=== PATIENT | female | born 1980 | race African-American/Black ===

== ENCOUNTER 2018-01-11 05:21 | Day surgery (SDC) | payer OTHER ==
[~2018-01-11] VITALS: Ht 160 cm; Wt 93.0 kg
[~2018-01-11 05:21] MED LIST: ADDERALL XR 3030 MG PO; ALBUTEROL2.5 MG/3 M IH; ALLERGY RELIEF10 M1 PO; AMOXICILLIN500 MG PO; AMPHETAMINE SAL30 MG PO; ASCORBIC ACID500 M3 PO; ATARAX,VISTARIL25 MG PO; AVELOX400 MG PO; BUSPAR15 MG PO; BUSPAR30 MG PO; CALCIUM500 M4 PO; CITRATE OF MAG296 ML PO; CLEOCIN300 MG PO; COLACE50 MG PO; DELTASONE10 MG PO; DULERA 200 MCG/13 GM IH; ELIQUIS5 MG PO; FLONASE ALLERG9.9 ML BOTH NARES; FOLIC ACID1 MG PO; HYDROCHLOROTH12.5 M3 PO; HYDROCODONE-HO473 ML PO; IMITREX100 MG PO; LEVOCETIRIZINE D5 MG PO; LEVOFLOXACIN750 MG PO; MIRALAX17 GM PO; MIRENA1 EACH IY; MOBIC7.5 MG PO; MUCUS RELIEF600 M1 PO; NAPROSYN500 MG PO; OMEPRAZOLE40 M1 PO; OXYCODONE HCL10 MG PO; PORTIA 28 DA1 TABLET PO; PROVENTIL,2.5 MG/3 M IH; Proventil,Ventolin H IH; RANITIDINE HCL150 M1 PO; RITALIN LA30 MG PO; SINGULAIR10 MG PO; SPIRIVA1 INHALATI IH; SPIRIVA18 MCG IH; STERAPRED 5 MG U5 MG PO; Symbicort 160-4.5 mc IH; TOPAMAX100 MG PO; TOPAMAX50 MG PO; VENTOLIN HFA18 GM IH; VITAMIN B-121000 MC3 PO; XARELTO15 MG PO; ZANAFLEX4 M1 PO
[2018-01-11 06:04] VITALS: BP 131/85
[2018-01-11 13:55] VITALS: BP 120/76
[2018-01-11 19:19] VITALS: BP 124/75
[2018-01-12 03:18] VITALS: BP 108/66
[2018-01-12 06:15] LABS: HEMATOCRIT 36.6 % (36.0-46.0); HEMOGLOBIN 11.8 G/DL (11.9-15.5); MCH 29.8 PG (29.0-34.0); MCHC 32.2 G/DL (30.0-36.0); MCV 92.4 FL (83-99); PLATELET COUNT 183 K/uL (156-360); RBC DIS.WIDTH-CV 13.9 % (11.8-14.6); RBC DIS.WIDTH-SD 47.4 % (39-53); RED BLOOD COUNT 3.96 M/uL (3.80-5.20); WHITE BLOOD COUNT 14.5 K/uL (4.1-10.2)
[2018-01-12 06:41] LABS: CHLORIDE 111 MEQ/L (99-109); CREATININE 0.9 MG/DL (0.6-1.3); GFR ESTIMATE (CALCULATED) > 59 mL/min/; GLUCOSE 163 mg/dL (70-99); POTASSIUM 4.3 MEQ/L (3.7-5.4); SODIUM 139 MEQ/L (136-147); UREA NITROGEN (BUN) 9 mg/dL (9-23)
[2018-01-12 07:53] VITALS: BP 111/55
[2018-01-12] MEDS ORDERED: LOVENOX40 MG/0.4 SC (08:16)
[2018-01-12] MEDS ORDERED: OXYCODONE HCL5 MG PO (08:18)
[2018-01-12] MEDS ORDERED: IBUPROFEN400 MG PO (08:18)
== END 2018-01-12 09:06 | disposition home or self-care (01) ==
LOC: SDC 05:21 → 2EAST 11:30 → 2SOUTH 11:30 → ENRESERV 12:00 → 2EAST 13:45 → SDC 17:09 → 2EAST 01-12 09:06
PROVIDERS: Obstetrics & Gynecology
DX: N92.0 Excessive and frequent menstruation with regular cycle (principal); D25.9 Leiomyoma of uterus, unspecified; N94.6 Dysmenorrhea, unspecified; N83.8 Other noninflammatory disorders of ovary, fallopian tube and broad ligament; Z86.718 Personal history of other venous thrombosis and embolism; K21.9 Gastro-esophageal reflux disease without esophagitis; L30.9 Dermatitis, unspecified; K76.0 Fatty (change of) liver, not elsewhere classified; H91.90 Unspecified hearing loss, unspecified ear; E72.11 Homocystinuria; E66.3 Overweight; Z68.35 Body mass index [BMI] 35.0-35.9, adult; F43.10 Post-traumatic stress disorder, unspecified; J45.909 Unspecified asthma, uncomplicated; F98.8 Other specified behavioral and emotional disorders with onset usually occurring in childhood and adolescence; F31.9 Bipolar disorder, unspecified; Z88.5 Allergy status to narcotic agent; Z88.2 Allergy status to sulfonamides; Z88.7 Allergy status to serum and vaccine; Z88.1 Allergy status to other antibiotic agents; Z88.8 Allergy status to other drugs, medicaments and biological substances
CPT/HCPCS: 80048; 85027; 87641; 88307; 94640; 99202; G0378; J0690; J1100; J1170; J1650; J1885; J2001; J2270; J2405; J2710; J2795; J3010; J3475; J7120; Q0175; Q0177

== ENCOUNTER 2018-01-13 14:21 | Emergency (ER) | payer OTHER ==
[~2018-01-13] VITALS: Ht 154.9 cm; Wt 91.2 kg
[~2018-01-13 14:21] MED LIST changes: +IBUPROFEN400 MG PO; +LOVENOX40 MG/0.4 SC; +OXYCODONE HCL5 MG PO
[2018-01-13 14:45] VITALS: BP 135/88
[2018-01-13 15:20] LABS: HEMATOCRIT 38.4 % (36.0-46.0); HEMOGLOBIN 12.7 G/DL (11.9-15.5); MCHC 33.1 G/DL (30.0-36.0); MCV 93.7 FL (83-99); RBC DIS.WIDTH-CV 13.9 % (11.8-14.6); RBC DIS.WIDTH-SD 46.9 % (39-53); WHITE BLOOD COUNT 11.5 K/uL (4.1-10.2)
[2018-01-13 15:30] LABS: ALBUMIN 3.6 g/dL (3.2-4.8)
[2018-01-13 15:31] LABS: CHLORIDE 108 mEq/L (99-109); SODIUM 139 mEq/L (136-147)
[2018-01-13 15:33] LABS: TOTAL PROTEIN 6.8 g/dL (6.4-8.3)
[2018-01-13 15:35] LABS: TOTAL BILIRUBIN 0.4 mg/dL (0.0-1.0)
[2018-01-13 15:36] LABS: ALKALINE PHOSPHATASE 61 IU/L (3-129)
[2018-01-13 15:37] LABS: CREATININE 1.1 mg/dL (0.6-1.3); GFR ESTIMATE (CALCULATED) > 59 mL/min/
[2018-01-13 15:38] LABS: AST (GOT) 16 IU/L (2-34); UREA NITROGEN (BUN) 13 mg/dL (9-23)
[2018-01-13 15:39] LABS: ALT (GPT) 13 IU/L (3-49); GLUCOSE 80 mg/dL (70-99)
[2018-01-13 16:03] LABS: PLAT.SUFFICIENCY ADEQUATE
[2018-01-13 16:16] LABS: APPEARANCE CLEAR ((CLEAR)); BILIRUBIN NEGATIVE; BLOOD SMALL; COLOR STRAW ((YELLOW)); GLUCOSE (STRIP) NEGATIVE; KETONES NEGATIVE; LEUKOCYTES TRACE; NITRITE NEGATIVE; PROTEIN (STRIP) NEGATIVE; SPECIFIC GRAVITY 1.006 (1.000-1.030); UROBILINOGEN 0.2 MG/DL (0.2-1.0)
[2018-01-13 16:24] LABS: BACTERIA RARE /HPF; EPITHELIAL CELLS RARE /HPF; MUCUS NONE SEEN /LPF; UCUL ADDED? NO; WHITE BLOOD CELLS 0-5 /HPF (0-5)
[2018-01-13 16:45] LABS: PLATELET COUNT 183 K/uL (156-360)
== END 2018-01-13 16:37 | disposition left against medical advice (07) ==
LOC: EME 14:21
DX: G89.18 Other acute postprocedural pain (principal); R10.9 Unspecified abdominal pain; Z90.710 Acquired absence of both cervix and uterus; K21.9 Gastro-esophageal reflux disease without esophagitis; J45.909 Unspecified asthma, uncomplicated; I25.2 Old myocardial infarction; F32.9 Major depressive disorder, single episode, unspecified; F41.9 Anxiety disorder, unspecified; Z86.718 Personal history of other venous thrombosis and embolism; Z88.8 Allergy status to other drugs, medicaments and biological substances
CPT/HCPCS: 80053; 81003; 85027; 86850; 86900; 86901

== ENCOUNTER → 2018-03-19 | Outpatient (CLI) | payer OTHER | END | disposition home or self-care (01) | LOC: NUC 10:00 | DX: R93.7 Abnormal findings on diagnostic imaging of other parts of musculoskeletal system (principal); Z96.643 Presence of artificial hip joint, bilateral; M25.552 Pain in left hip; M17.12 Unilateral primary osteoarthritis, left knee; M54.41 Lumbago with sciatica, right side | CPT/HCPCS: 78315; A9503 ==